=== PATIENT | male | born 1960 | race Caucasian/White ===

== ENCOUNTER 2016-02-24 02:22 | Emergency (ER) | payer BC ==
[2016-02-24] MEDS ORDERED: GI COCKTAIL 50ML BTL(HYOSCYAMINE/MAALOX/LIDOCAINE VISCOUS)(1:3:1) As Ordered ONE (03:21)
[2016-02-24 03:27] LABS: BASO # 0.2 K/mm3 (0.0-0.2); BASO % 2.5 % (0.0-1.0); EOS # 0.2 K/mm3 (0.0-0.50); EOS % 3.3 % (0.0-3.0); LARGE UNSTAINED CELL # 0.1 K/mm3 (0.0-0.4); LARGE UNSTAINED CELL % 1.8 % (0.0-4.0); LYMPH % 25.1 % (24.0-44.0); MEAN CORPUSCULAR HEMOGLOBIN 30.2 pg (27.0-33.0); MEAN CORPUSCULAR HGB CONC 34.5 g/dl (32.0-36.5); MEAN CORPUSCULAR VOLUME 87.5 fl (80.0-96.0); MONO # 0.4 K/mm3 (0.0-0.8); MONO % 5.4 % (0.0-5.0); NEUTROPHILS # 4.7 K/mm3 (1.8-7.7); NEUTROPHILS % 61.9 % (36.0-66.0); PLATELET COUNT, AUTOMATED 270 k/mm3 (150-450); RED CELL DISTRIBUTION WIDTH 13.4 % (11.5-14.5); WHITE BLOOD COUNT 7.6 K/mm3 (4.0-10.0)
[2016-02-24 03:44] LABS: ALBUMIN/GLOBULIN RATIO 1.14 (1.00-1.93); ALKALINE PHOSPHATASE 69 U/L (45-117); ALT/SGPT 25 U/L (12-78); AMYLASE 63 U/L (25-115); ANION GAP 5 MEQ/L (8-16); AST/SGOT 17 U/L (15-37); BILIRUBIN,DIRECT 0.1 MG/DL (0.0-0.2); BILIRUBIN,TOTAL 0.6 MG/DL (0.2-1.0); BLOOD UREA NITROGEN 17 MG/DL (7-18); CALCIUM LEVEL 8.5 MG/DL (8.5-10.1); CARBON DIOXIDE LEVEL 32 MEQ/L (21-32); CHLORIDE LEVEL 104 MEQ/L (98-107); CREATININE FOR GFR 0.92 MG/DL (0.70-1.30); GLOMERULAR FILTRATION RATE > 60.0 (>56); GLUCOSE, FASTING 91 MG/DL (70-105); POTASSIUM SERUM 4.2 MEQ/L (3.5-5.1); SODIUM LEVEL 141 MEQ/L (136-145); TOTAL PROTEIN 7.5 GM/DL (6.4-8.2)
[2016-02-24] MEDS ORDERED: ONDANSETRON 4MG/2ML VIAL (J2405) As Ordered ONE ×2 (03:48→05:27)
[2016-02-24] MEDS ORDERED: MORPHINE 4 MG/ML 1ML SYRINGE As Ordered ONE ×2 (03:48→05:27)
[2016-02-24] MEDS ORDERED: ISOVUE-370 76% 100ML VIAL (Q9967) As Ordered ONE (03:52)
--- NOTE | 2016-02-24 04:40 | REPUSA ---
CLINICAL HISTORY: Abdominal pain. TECHNIQUE: Multiple axial, sagittal and coronal CT images were obtained through the abdomen and pelvi s after administration of intravenous contrast material. COMMENTS: The liver is mildly enlarged with decreased attenuation without mass or defect. There is no intra or extrahepatic biliary ductal dilatation. The spleen is normal. The gallbladder is within normal limits . The pancreas is of normal contour and attenuation characteristics. There is no evidence of adrenal mass. Both kidneys demonstrate prompt and equal nephrograms. The kidneys are normal in size, shape and conf iguration. There is no evidence of renal or ureteral mass. No renal or ureteral calculi are identifie d. There is no hydroureter or hydronephrosis. No evidence for appendicitis. Fluid filled mildly dilated small bowel loops in the left upper quadran t. There is no evidence of abdominal ascites or lymphadenopathy. There is no evidence of intrinsic or extrinsic bladder mass. There is no pelvic ascites or lymphadeno isamar. Images of the lung bases show no evidence of pleural or parenchymal mass. There are no pleural effusi ons. The bony structures are free of lytic or blastic lesions. Multilevel degenerative changes are seen in volving the thoracolumbar spine. Scattered calcifications are seen involving the aorta and major bran ches compatible with atherosclerosis. Mild changes of central mesenteric panniculitis. IMPRESSION: Fluid filled mildly dilated small bowel loops in the left upper quadrant. Focal ileus versus developi ng/low grade bowel obstruction. Mild hepatomegaly with fatty liver infiltration. Thank you for your kind referral of this patient.
--- NOTE | 2016-02-24 06:21 | EDDOCDS ---
Nurse's Notes [facility] Name: Omar Silva Age: 55 yrs Sex: Male : 1960 Arrival Date: 02/24/2016 Time: 02:22 Bed 12 Private MD: Diagnosis: Abdominal and pelvic pain Presentation: 02/23 02:35 Presenting complaint: Patient states: he has had left upper abdominal pain since Tuesday cz pain gradually getting worse and starting to radiate to back decreased appetite. Adult Sepsis Screening: The patient does not have new or worsening altered mentation. Patient's respiratory rate is less than 22. Systolic blood pressure is greater than 100. Patient has a qSOFA score of 0- Negative Sepsis Screen. Suicide/Homicide risk assessment- the patient denies having any suicidal and/or homicidal ideations and does not present with any other emotional, behavioral or mental health complaints. 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 Transition of care: patient was not received from another setting of care. 02:35 Acuity: JESI Level 3 cz 02:35 Method Of Arrival: Walkin/Carried/Asstd cz Triage Assessment: 02:37 General: Appears uncomfortable. Pain: Location: left upper quadrant Pain currently is 6 cz out of 10 on a pain scale. Pt Declines HIV testing. Historical: - Allergies: No known drug Allergies; - Home Meds: 1. none - PMHx: none; - PSHx: bilateral shoulder surgery; - Social history: Smoking status: Patient states was never smoker of tobacco. No barriers to communication noted, The patient speaks fluent Yoruba, Speaks appropriately for age. - Family history: Not pertinent, No immediate family members are acutely ill. - : The pt / caregiver states he / she is not on anticoagulants. Home medication list is obtained from the patient. - Exposure Risk Screening:: None identified. Screenin:14 Screening information is obtained from the patient. Fall risk: No risks identified. mlc Assistance ADL's: requires no assistance with activities of daily living. Abuse/DV Screen: The patient / caregiver reports he/she is: not in a situation that causes fear, pain or injury. Nutritional screening: No deficits noted. Advance Directives: Currently, there is no health care proxy. home support is adequate. Assessment: 03:14 General: Appears in no apparent distress, comfortable, Behavior is cooperative. Pain: mlc Location: left upper quadrant Pain currently is 7 out of 10 on a pain scale. Neurological: Level of Consciousness is awake, alert, obeys commands, Oriented to person, place, time. Cardiovascular: Heart tones S1 S2 present. Respiratory: Airway is patent Respiratory effort is even, unlabored, Respiratory pattern is regular, Breath sounds are clear bilaterally. GI: Abdomen is flat, non- distended Bowel sounds present X 4 quads. Abd is soft X 4 quads Abd is tender to palpation in left upper quadrant Reports gaseousness. Derm: Skin is normal. 03:27 Reassessment: Patient appears in no apparent distress at this time. pt medicated per mlc order. 04:04 Reassessment: pt returned from CT, tolerated well. . mlc 05:36 Reassessment: Patient appears in no apparent distress at this time. Patient states mlc symptoms have not improved. pt medicated per order. resp easy/unlabored. . 06:16 General: Appears in no apparent distress, comfortable, Behavior is cooperative. Pain: mlc Pain currently is 2 out of 10 on a pain scale. Neurological: Level of Consciousness is awake, alert, Oriented to person. Respiratory: Airway is patent Respiratory effort is even, unlabored, Respiratory pattern is regular. Derm: Skin is normal. Vital Signs: 02:37 BP 135 / 86; Pulse 68; Resp 16; Temp 97.1(O); Pulse Ox 96% on R/A; Weight 79.38 kg; cz Height 5 ft. 7 in. (170.18 cm); 05:34 BP 113 / 76 (auto/); mlc 06:16 BP 119 / 80; Pulse 69; Resp 18; Temp 97.3; Pulse Ox 95% ; Pain 2/10; mlc 02:37 Body Mass Index 27.41 (79.38 kg, 170.18 cm) Vitals: 02:37 Log In Time: February 24, 2016 at 02:22. ED Course: 02:24 Patient visited by Miguel Fagan, Alejandro. pm4 02:24 Patient moved to Waiting pm4 02:33 Patient moved to Triage 1 cz 02:36 Triage Initiated cz 02:40 Michelle De La O,SHOSHANA is Primary Nurse. cz 02:40 Patient moved to 12 cz 03:10 Bert Moreno DO is Attending Physician. mm11 03:10 Patient visited by Bert Moreno DO. mm11 03:14 Inserted saline lock: 20 gauge in left antecubital area and blood collected. The mlc patient tolerated the procedure well. 03:15 Patient visited by Michelle De La O RN. mlc 03:17 Patient visited by Bert Moreno DO. mm11 03:20 Cardiac Marker Panel Sent. mlc 03:20 Amylase Sent. mlc 03:20 Basic Metabolic Profile Sent. mlc 03:20 CBC with Diff Sent. mlc 03:20 Lipase Sent. mlc 03:20 Liver Profile Sent. mlc 03:27 Patient visited by Michelle De La O RN. mlc 04:04 Patient visited by Michelle De La O RN. mlc 04:38 Patient visited by Bert Moreno DO. mm11 04:56 CT ABD & PELVIS: IV Contrast Only Returned. EDMS 05:11 [facility] Payment Agreement was scanned into [employer] and attached to record. hs2 05:32 Patient visited by Bert Moreno DO. mm11 05:34 The patient / caregiver is instructed regarding the plan of care and ED course. Pulse mlc ox on. NIBP on. 05:37 Patient visited by Michelle De La O RN. mlc 06:05 Marcel Snell DO is Referral Physician. mm11 06:16 Discontinued IV lock intact, bleeding controlled, pressure dressing applied, No mlc redness/swelling at site. No procedures done that require assistance. Administered Medications: 03:25 Drug: GI Cocktail - (Alum-Mag Hydroxide-Simeth Suspension 225 mg-200 mg-25 mg/5 mL 30 mlc ml, Lidocaine Liquid 2 % 10 ml, Hyoscyamine Liquid 10 ml) Route: PO; 03:53 Follow up: Response: No significant change. mlc 03:26 Drug: NS 0.9% 1000 ml [sodium chloride 0.9 % intravenous solution] Route: IV; Rate: mlc bolus; Site: left antecubital; 03:53 Not Given (Patient Refused): morphine 4 mg IVP every 30 minutes; Document pain mlc score/vitals after each dose (Hold if SBP < 90mmHg) x2 03:53 Not Given (Patient Refused): Ondansetron 4 mg IVP once mlc 05:36 Drug: morphine 4 mg [morphine 4 mg/mL intravenous cartridge (1 mL)] Route: IVP; Site: mlc left antecubital; 06:20 Follow up: Response: Pain is decreased [facility] 05:36 Drug: Ondansetron 4 mg [ondansetron HCl 2 mg/mL intravenous solution (2 mL)] Route: mlc IVP; Site: left antecubital; 06:20 Follow up: Response: No Adverse Reaction [facility] Order Results: Lab Order: Amylase; SPEC'M 02/24/16 03:11 Test: AMYLASE; Value: 63; Range: 25-115; Units: U/L; Status: F Lab Order: Basic Metabolic Profile; SPEC'M 02/24/16 03:11 Test: GLUCOSE, FASTING; Value: 91; Range: 70-105; Units: MG/DL; Status: F Test: BLOOD UREA NITROGEN; Value: 17; Range: 7-18; Units: MG/DL; Status: F Test: CREATININE FOR GFR; Value: 0.92; Range: 0.70-1.30; Units: MG/DL; Status: F Test: GLOMERULAR FILTRATION RATE; Value: > 60.0; Range: >56; Status: F Test: SODIUM LEVEL; Value: 141; Range: 136-145; Units: MEQ/L; Status: F Test: POTASSIUM SERUM; Value: 4.2; Range: 3.5-5.1; Units: MEQ/L; Status: F Test: CHLORIDE LEVEL; Value: 104; Range: 98-107; Units: MEQ/L; Status: F Test: CARBON DIOXIDE LEVEL; Value: 32; Range: 21-32; Units: MEQ/L; Status: F Test: ANION GAP; Value: 5; Range: 8-16; Abnormal: Below low normal; Units: MEQ/L; Status: F Test: CALCIUM LEVEL; Value: 8.5; Range: 8.5-10.1; Units: MG/DL; Status: F Test Note: ; Units are mL/min/1.73 m2 Chronic Kidney Disease Staging per NKF: Stage I & II GFR >=60 Normal to Mildly Decreased Stage III GFR 30-59 Moderately Decreased Stage IV GFR 15-29 Severely Decreased Stage V GFR <15 Very Little GFR Left ESRD GFR <15 on POSTMASTER Lab Order: CBC with Diff; SPEC'M 02/24/16 03:11 Test: WHITE BLOOD COUNT; Value: 7.6; Range: 4.0-10.0; Units: K/mm3; Status: F Test: RED BLOOD COUNT; Value: 5.36; Range: 4.30-6.10; Units: M/mm3; Status: F Test: HEMOGLOBIN; Value: 16.2; Range: 14.0-18.0; Units: g/dl; Status: F Test: HEMATOCRIT; Value: 46.9; Range: 42.0-52.0; Units: %; Status: F Test: MEAN CORPUSCULAR VOLUME; Value: 87.5; Range: 80.0-96.0; Units: fl; Status: F Test: MEAN CORPUSCULAR HEMOGLOBIN; Value: 30.2; Range: 27.0-33.0; Units: pg; Status: F Test: MEAN CORPUSCULAR HGB CONC; Value: 34.5; Range: 32.0-36.5; Units: g/dl; Status: F Test: RED CELL DISTRIBUTION WIDTH; Value: 13.4; Range: 11.5-14.5; Units: %; Status: F Test: PLATELET COUNT, AUTOMATED; Value: 270; Range: 150-450; Units: k/mm3; Status: F Test: NEUTROPHILS %; Value: 61.9; Range: 36.0-66.0; Units: %; Status: F Test: LYMPH %; Value: 25.1; Range: 24.0-44.0; Units: %; Status: F Test: MONO %; Value: 5.4; Range: 0.0-5.0; Abnormal: Above high normal; Units: %; Status: F Test: EOS %; Value: 3.3; Range: 0.0-3.0; Abnormal: Above high normal; Units: %; Status: F Test: BASO %; Value: 2.5; Range: 0.0-1.0; Abnormal: Above high normal; Units: %; Status: F Test: LARGE UNSTAINED CELL %; Value: 1.8; Range: 0.0-4.0; Units: %; Status: F Test: NEUTROPHILS #; Value: 4.7; Range: 1.8-7.7; Units: K/mm3; Status: F Test: LYMPH #; Value: 2.0; Range: 1.5-4.5; Units: K/mm3; Status: F Test: MONO #; Value: 0.4; Range: 0.0-0.8; Units: K/mm3; Status: F Test: EOS #; Value: 0.2; Range: 0.0-0.50; Units: K/mm3; Status: F Test: BASO #; Value: 0.2; Range: 0.0-0.2; Units: K/mm3; Status: F Test: LARGE UNSTAINED CELL #; Value: 0.1; Range: 0.0-0.4; Units: K/mm3; Status: F Lab Order: Lipase; [facility]' 02/24/16 03:11 Test: LIPASE; Value: 204; Range: 73-393; Units: U/L; Status: F Lab Order: Liver Profile; [facility] 02/24/16 03:11 Test: AST/SGOT; Value: 17; Range: 15-37; Units: U/L; Status: F Test: ALT/SGPT; Value: 25; Range: 12-78; Units: U/L; Status: F Test: ALKALINE PHOSPHATASE; Value: 69; Range: 45-117; Units: U/L; Status: F Test: BILIRUBIN,TOTAL; Value: 0.6; Range: 0.2-1.0; Units: MG/DL; Status: F Test: BILIRUBIN,DIRECT; Value: 0.1; Range: 0.0-0.2; Units: MG/DL; Status: F Test: TOTAL PROTEIN; Value: 7.5; Range: 6.4-8.2; Units: GM/DL; Status: F Test: ALBUMIN; Value: 4.0; Range: 3.2-5.2; Units: GM/DL; Status: F Test: ALBUMIN/GLOBULIN RATIO; Value: 1.14; Range: 1.00-1.93; Status: F Lab Order: Cardiac Marker Panel; [facility] 02/24/16 03:11 Test: CPK CREATINE PHOSPHOKINASE; Value: 91; Range: 39-308; Units: U/L; Status: F Test: CK-MB VALUE MASS; Value: 1.0; Range: 0.0-3.6; Units: NG/ML; Status: F Test: MB/CK RELATIVE INDEX; Value: 1.09; Range: < OR =4; Status: F Test: TROPONIN I; Value: < 0.02; Range: < 0.10; Units: NG/ML; Status: F Test Note: ; DIAGNOSIS CRITERIA MMB ng/ml Relative Index (RI) NON-AMI < or = 5 N/A ACE ZONE > 5 < or = 4 AMI > 5 > 4 Radiology Order: CT ABD & PELVIS: IV Contrast Only Test: CT ABD & PELVIS: IV Contrast Only REASON FOR EXAMINATION: LUQ PAIN; ; CLINICAL HISTORY: Abdominal pain.; TECHNIQUE: Multiple axial, sagittal and coronal CT images were obtained through the abdomen and pelvi; s after administration of intravenous contrast material.; COMMENTS:; The liver is mildly enlarged with decreased attenuation without mass or defect. There is no intra or; extrahepatic biliary ductal dilatation. The spleen is normal. The gallbladder is within normal limits; . The pancreas is of normal contour and attenuation characteristics. There is no evidence of adrenal; mass.; Both kidneys demonstrate prompt and equal nephrograms. The kidneys are normal in size, shape and conf; iguration. There is no evidence of renal or ureteral mass. No renal or ureteral calculi are identifie; d. There is no hydroureter or hydronephrosis.; No evidence for appendicitis. Fluid filled mildly dilated small bowel loops in the left upper quadran; t. There is no evidence of abdominal ascites or lymphadenopathy.; There is no evidence of intrinsic or extrinsic bladder mass. There is no pelvic ascites or lymphadeno; isamar.; Images of the lung bases show no evidence of pleural or parenchymal mass. There are no pleural effusi; ons.; The bony structures are free of lytic or blastic lesions. Multilevel degenerative changes are seen in; volving the thoracolumbar spine. Scattered calcifications are seen involving the aorta and major bran; ches compatible with atherosclerosis.; Mild changes of central mesenteric panniculitis.; IMPRESSION:; Fluid filled mildly dilated small bowel loops in the left upper quadrant. Focal ileus versus developi; ng/low grade bowel obstruction.; Mild hepatomegaly with fatty liver infiltration.; Thank you for your kind referral of this patient.; ; Outcome: 05:34 CT Study completed. mlc 06:05 Discharge ordered by Provider. mm11 06:16 Discharge Assessment: Patient awake, alert and oriented x 3. No cognitive and/or mlc functional deficits noted. Patient verbalized understanding of disposition instructions. patient administered narcotics - yes. Pt provided with safe discharge. The following High Risk Discharge criteria are identified: None. Discharged to home ambulatory, with significant other. Condition: good Condition: stable. Discharge instructions given to patient, Instructed on discharge instructions, follow up and referral plans. medication usage, no driving heavy equipment, Demonstrated understanding of instructions, medications, Pt was receptive of discharge instructions/ teaching. Prescriptions given X 2. Property sent home with patient. 06:21 Patient left the ED. [facility] Signatures: Dispatcher [employer] EDMS Alex Bridges RN RN cz Maynard, Matthew, DO DO mm11 Michelle De La O RN RN mlc Stanton, Hillary, Reg Reg hs2 Miguel Fagan, Reg Reg pm4 NIDA
--- NOTE | 2016-02-24 06:21 | EDDOCDS ---
Physician Documentation [facility] Name: Omar Silva Age: 55 yrs Sex: Male : 1960 Arrival Date: 02/24/2016 Time: 02:22 Bed 12 Private MD: Disposition: 02/24/16 06:05 Discharged to Home/Self Care. Impression: Abdominal and pelvic pain. - Condition is Stable. - Discharge Instructions: Abdominal Pain, Adult. - Prescriptions for [place] 5- 325 mg Oral Tablet - take 1 tablet by ORAL route every 6 hours As needed MDD: 4 tabs; 6 tablet. Zofran 4 mg Oral Tablet - take 1 tablet by ORAL route 4 times per day As needed; 10 tablet. - Medication Reconciliation, Local Pharmacy Hours form. - Follow up: Marcel Snell DO; When: 1 week; Reason: Continuance of care. - Problem is an ongoing problem. - Symptoms have improved. - Notes: THE BLOOD WORK DID NOT INDICATE ANY REASON FOR YOUR DISCOMORT. YOUR CT SCAN SHOWED SOME FLUID FILLED LOOPS OF BOWEL IN THE LEFT UPPER QUADRANT WHICH USUALLY INDICATES INFLAMMATION OF YOUR INTESTINES BUT YOU ARE NOT EXPERIENCING ANY NAUSEA. FOLLOW UP WITH YOUR PRIMARY CARE PROVIDER IN [place] AND RETURN TO THE ER IF YOUR SYMPTOMS WORSEN. Historical: - Allergies: No known drug Allergies; - Home Meds: 1. none - PMHx: none; - PSHx: bilateral shoulder surgery; - Social history: Smoking status: Patient states was never smoker of tobacco. No barriers to communication noted, The patient speaks fluent Salvadorean, Speaks appropriately for age. - Family history: Not pertinent, No immediate family members are acutely ill. - : The pt / caregiver states he / she is not on anticoagulants. Home medication list is obtained from the patient. - Exposure Risk Screening:: None identified. Vital Signs: 02/23 02:37 BP 135 / 86; Pulse 68; Resp 16; Temp 97.1(O); Pulse Ox 96% on R/A; Weight 79.38 kg / cz 175 lbs; Height 5 ft. 7 in. (170.18 cm); 05:34 BP 113 / 76 (auto/); mlc 06:16 BP 119 / 80; Pulse 69; Resp 18; Temp 97.3; Pulse Ox 95% ; Pain 2/10; mlc 02:37 Body Mass Index 27.41 (79.38 kg, 170.18 cm) cz MDM: 03:17 NS 0.9% 1000 ml IV at bolus once ordered. mm11 03:17 IV Saline Lock ordered. mm11 03:17 Undress patient appropriately for examination ordered. mm11 03:17 GI Cocktail - (Alum-Mag Hydroxide-Simeth 30 ml, Lidocaine 10 ml, Hyoscyamine 10 ml) PO mm11 once; Pre-mixed 50mL unit dose ordered. 03:19 Amylase Ordered. EDMS 03:19 Basic Metabolic Profile Ordered. EDMS 03:19 CBC with Diff Ordered. EDMS 03:19 Lipase Ordered. EDMS 03:19 Liver Profile Ordered. EDMS 03:19 Cardiac Marker Panel Ordered. EDMS 03:19 NOTHING BY MOUTH+DIET ordered. EDMS 03:45 Basic Metabolic Profile Reviewed. mm11 03:45 CBC with Diff Reviewed. mm11 03:45 Amylase Reviewed. mm11 03:45 Lipase Reviewed. mm11 03:45 Liver Profile Reviewed. mm11 03:46 morphine 4 mg IVP every 30 minutes; Document pain score/vitals after each dose (Hold if mm11 SBP < 90mmHg) x2 ordered. 03:46 Ondansetron 4 mg IVP once ordered. mm11 03:47 CT ABD & PELVIS: IV Contrast Only Ordered. EDMS 04:01 Basic Metabolic Profile Reviewed. mm11 04:01 Amylase Reviewed. mm11 04:01 Lipase Reviewed. mm11 04:01 Liver Profile Reviewed. mm11 04:01 Cardiac Marker Panel Reviewed. mm11 05:05 Financial registration complete. hs2 05:11 [facility] Agreement was scanned into [employer] and attached to record. hs2 05:18 morphine 4 mg IVP every 30 minutes; Document pain score/vitals after each dose (Hold if mm11 SBP < 90mmHg) x2 ordered. 05:18 Ondansetron 4 mg IVP once ordered. mm11 Administered Medications: 03:25 Drug: GI Cocktail - (Alum-Mag Hydroxide-Simeth Suspension 225 mg-200 mg-25 mg/5 mL 30 mlc ml, Lidocaine Liquid 2 % 10 ml, Hyoscyamine Liquid 10 ml) Route: PO; 03:53 Follow up: Response: No significant change. mlc 03:26 Drug: NS 0.9% 1000 ml [sodium chloride 0.9 % intravenous solution] Route: IV; Rate: mlc bolus; Site: left antecubital; 03:53 Not Given (Patient Refused): morphine 4 mg IVP every 30 minutes; Document pain mlc score/vitals after each dose (Hold if SBP < 90mmHg) x2 03:53 Not Given (Patient Refused): Ondansetron 4 mg IVP once mlc 05:36 Drug: morphine 4 mg [morphine 4 mg/mL intravenous cartridge (1 mL)] Route: IVP; Site: mlc left antecubital; 06:20 Follow up: Response: Pain is decreased mlc 05:36 Drug: Ondansetron 4 mg [ondansetron HCl 2 mg/mL intravenous solution (2 mL)] Route: mlc IVP; Site: left antecubital; 06:20 Follow up: Response: No Adverse Reaction [facility] Signatures: Dispatcher [employer] Alex Washburn RN Bert Perez DO DO mm11 Michelle De La O RN RN [facility] Kristi Young, Reg Reg hs2 The chart was reviewed and I authenticate all verbal orders and agree with the evaluation and treatment provided.Attachments: 05:11 [facility] Payment Agreement hs2 MTDD
--- NOTE | 2016-02-26 07:22 | EDDOCDS ---
Nurse's Notes [facility] Name: Omar Silva Age: 55 yrs Sex: Male : 1960 Arrival Date: 02/24/2016 Time: 02:22 Bed 12 Private MD: Diagnosis: Abdominal and pelvic pain Presentation: 02/23 02:35 Presenting complaint: Patient states: he has had left upper abdominal pain since Tuesday cz pain gradually getting worse and starting to radiate to back decreased appetite. Adult Sepsis Screening: The patient does not have new or worsening altered mentation. Patient's respiratory rate is less than 22. Systolic blood pressure is greater than 100. Patient has a qSOFA score of 0- Negative Sepsis Screen. Suicide/Homicide risk assessment- the patient denies having any suicidal and/or homicidal ideations and does not present with any other emotional, behavioral or mental health complaints. 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 Transition of care: patient was not received from another setting of care. 02:35 Acuity: JESI Level 3 cz 02:35 Method Of Arrival: Walkin/Carried/Asstd cz Triage Assessment: 02:37 General: Appears uncomfortable. Pain: Location: left upper quadrant Pain currently is 6 cz out of 10 on a pain scale. Pt Declines HIV testing. Historical: - Allergies: No known drug Allergies; - Home Meds: 1. none - PMHx: none; - PSHx: bilateral shoulder surgery; - Social history: Smoking status: Patient states was never smoker of tobacco. No barriers to communication noted, The patient speaks fluent [place], Speaks appropriately for age. - Family history: Not pertinent, No immediate family members are acutely ill. - : The pt / caregiver states he / she is not on anticoagulants. Home medication list is obtained from the patient. - Exposure Risk Screening:: None identified. Screenin:14 Screening information is obtained from the patient. Fall risk: No risks identified. mlc Assistance ADL's: requires no assistance with activities of daily living. Abuse/DV Screen: The patient / caregiver reports he/she is: not in a situation that causes fear, pain or injury. Nutritional screening: No deficits noted. Advance Directives: Currently, there is no health care proxy. home support is adequate. Assessment: 03:14 General: Appears in no apparent distress, comfortable, Behavior is cooperative. Pain: mlc Location: left upper quadrant Pain currently is 7 out of 10 on a pain scale. Neurological: Level of Consciousness is awake, alert, obeys commands, Oriented to person, place, time. Cardiovascular: Heart tones S1 S2 present. Respiratory: Airway is patent Respiratory effort is even, unlabored, Respiratory pattern is regular, Breath sounds are clear bilaterally. GI: Abdomen is flat, non- distended Bowel sounds present X 4 quads. Abd is soft X 4 quads Abd is tender to palpation in left upper quadrant Reports gaseousness. Derm: Skin is normal. 03:27 Reassessment: Patient appears in no apparent distress at this time. pt medicated per mlc order. 04:04 Reassessment: pt returned from CT, tolerated well. . mlc 05:36 Reassessment: Patient appears in no apparent distress at this time. Patient states mlc symptoms have not improved. pt medicated per order. resp easy/unlabored. . 06:16 General: Appears in no apparent distress, comfortable, Behavior is cooperative. Pain: mlc Pain currently is 2 out of 10 on a pain scale. Neurological: Level of Consciousness is awake, alert, Oriented to person. Respiratory: Airway is patent Respiratory effort is even, unlabored, Respiratory pattern is regular. Derm: Skin is normal. Vital Signs: 02:37 BP 135 / 86; Pulse 68; Resp 16; Temp 97.1(O); Pulse Ox 96% on R/A; Weight 79.38 kg; cz Height 5 ft. 7 in. (170.18 cm); 05:34 BP 113 / 76 (auto/); mlc 06:16 BP 119 / 80; Pulse 69; Resp 18; Temp 97.3; Pulse Ox 95% ; Pain 2/10; mlc 02:37 Body Mass Index 27.41 (79.38 kg, 170.18 cm) Vitals: 02:37 Log In Time: February 24, 2016 at 02:22. ED Course: 02:24 Patient visited by Miguel Fagan, Alejandro. pm4 02:24 Patient moved to Waiting pm4 02:33 Patient moved to Triage 1 cz 02:36 Triage Initiated cz 02:40 Michelle De La O,SHOSHANA is Primary Nurse. cz 02:40 Patient moved to 12 cz 03:10 Bert Moreno DO is Attending Physician. mm11 03:10 Patient visited by Bert Moreno DO. mm11 03:14 Inserted saline lock: 20 gauge in left antecubital area and blood collected. The mlc patient tolerated the procedure well. 03:15 Patient visited by Michelle De La O RN. mlc 03:17 Patient visited by Bert Moreno DO. mm11 03:20 Cardiac Marker Panel Sent. mlc 03:20 Amylase Sent. mlc 03:20 Basic Metabolic Profile Sent. mlc 03:20 CBC with Diff Sent. mlc 03:20 Lipase Sent. mlc 03:20 Liver Profile Sent. mlc 03:27 Patient visited by Michelle De La O RN. mlc 04:04 Patient visited by Michelle De La O RN. mlc 04:38 Patient visited by Bert Moreno DO. mm11 04:56 CT ABD & PELVIS: IV Contrast Only Returned. EDMS 05:11 [facility] Payment Agreement was scanned into [employer] and attached to record. hs2 05:32 Patient visited by Bert Moreno DO. mm11 05:34 The patient / caregiver is instructed regarding the plan of care and ED course. Pulse mlc ox on. NIBP on. 05:37 Patient visited by Michelle De La O RN. mlc 06:05 Marcel Snell DO is Referral Physician. mm11 06:16 Discontinued IV lock intact, bleeding controlled, pressure dressing applied, No mlc redness/swelling at site. No procedures done that require assistance. 12:10 T-Sheet-- Draft Copy was scanned into [employer] and attached to record. gb 12:10 Radiology Report was scanned into [employer] and attached to record. gb Administered Medications: 03:25 Drug: GI Cocktail - (Alum-Mag Hydroxide-Simeth Suspension 225 mg-200 mg-25 mg/5 mL 30 mlc ml, Lidocaine Liquid 2 % 10 ml, Hyoscyamine Liquid 10 ml) Route: PO; 03:53 Follow up: Response: No significant change. mlc 03:26 Drug: NS 0.9% 1000 ml [sodium chloride 0.9 % intravenous solution] Route: IV; Rate: mlc bolus; Site: left antecubital; 03:53 Not Given (Patient Refused): morphine 4 mg IVP every 30 minutes; Document pain mlc score/vitals after each dose (Hold if SBP < 90mmHg) x2 03:53 Not Given (Patient Refused): Ondansetron 4 mg IVP once [facility] 05:36 Drug: morphine 4 mg [morphine 4 mg/mL intravenous cartridge (1 mL)] Route: IVP; Site: [facility] left antecubital; 06:20 Follow up: Response: Pain is decreased [facility] 05:36 Drug: Ondansetron 4 mg [ondansetron HCl 2 mg/mL intravenous solution (2 mL)] Route: mlc IVP; Site: left antecubital; 06:20 Follow up: Response: No Adverse Reaction [facility] Order Results: Lab Order: Amylase; SPEC'M 02/24/16 03:11 Test: AMYLASE; Value: 63; Range: 25-115; Units: U/L; Status: F Lab Order: Basic Metabolic Profile; SPEC' 02/24/16 03:11 Test: GLUCOSE, FASTING; Value: 91; Range: 70-105; Units: MG/DL; Status: F Test: BLOOD UREA NITROGEN; Value: 17; Range: 7-18; Units: MG/DL; Status: F Test: CREATININE FOR GFR; Value: 0.92; Range: 0.70-1.30; Units: MG/DL; Status: F Test: GLOMERULAR FILTRATION RATE; Value: > 60.0; Range: >56; Status: F Test: SODIUM LEVEL; Value: 141; Range: 136-145; Units: MEQ/L; Status: F Test: POTASSIUM SERUM; Value: 4.2; Range: 3.5-5.1; Units: MEQ/L; Status: F Test: CHLORIDE LEVEL; Value: 104; Range: 98-107; Units: MEQ/L; Status: F Test: CARBON DIOXIDE LEVEL; Value: 32; Range: 21-32; Units: MEQ/L; Status: F Test: ANION GAP; Value: 5; Range: 8-16; Abnormal: Below low normal; Units: MEQ/L; Status: F Test: CALCIUM LEVEL; Value: 8.5; Range: 8.5-10.1; Units: MG/DL; Status: F Test Note: ; Units are mL/min/1.73 m2 Chronic Kidney Disease Staging per NKF: Stage I & II GFR >=60 Normal to Mildly Decreased Stage III GFR 30-59 Moderately Decreased Stage IV GFR 15-29 Severely Decreased Stage V GFR <15 Very Little GFR Left ESRD GFR <15 on BOAT HAND Lab Order: CBC with Diff; SPEC'M 02/24/16 03:11 Test: WHITE BLOOD COUNT; Value: 7.6; Range: 4.0-10.0; Units: K/mm3; Status: F Test: RED BLOOD COUNT; Value: 5.36; Range: 4.30-6.10; Units: M/mm3; Status: F Test: HEMOGLOBIN; Value: 16.2; Range: 14.0-18.0; Units: g/dl; Status: F Test: HEMATOCRIT; Value: 46.9; Range: 42.0-52.0; Units: %; Status: F Test: MEAN CORPUSCULAR VOLUME; Value: 87.5; Range: 80.0-96.0; Units: fl; Status: F Test: MEAN CORPUSCULAR HEMOGLOBIN; Value: 30.2; Range: 27.0-33.0; Units: pg; Status: F Test: MEAN CORPUSCULAR HGB CONC; Value: 34.5; Range: 32.0-36.5; Units: g/dl; Status: F Test: RED CELL DISTRIBUTION WIDTH; Value: 13.4; Range: 11.5-14.5; Units: %; Status: F Test: PLATELET COUNT, AUTOMATED; Value: 270; Range: 150-450; Units: k/mm3; Status: F Test: NEUTROPHILS %; Value: 61.9; Range: 36.0-66.0; Units: %; Status: F Test: LYMPH %; Value: 25.1; Range: 24.0-44.0; Units: %; Status: F Test: MONO %; Value: 5.4; Range: 0.0-5.0; Abnormal: Above high normal; Units: %; Status: F Test: EOS %; Value: 3.3; Range: 0.0-3.0; Abnormal: Above high normal; Units: %; Status: F Test: BASO %; Value: 2.5; Range: 0.0-1.0; Abnormal: Above high normal; Units: %; Status: F Test: LARGE UNSTAINED CELL %; Value: 1.8; Range: 0.0-4.0; Units: %; Status: F Test: NEUTROPHILS #; Value: 4.7; Range: 1.8-7.7; Units: K/mm3; Status: F Test: LYMPH #; Value: 2.0; Range: 1.5-4.5; Units: K/mm3; Status: F Test: MONO #; Value: 0.4; Range: 0.0-0.8; Units: K/mm3; Status: F Test: EOS #; Value: 0.2; Range: 0.0-0.50; Units: K/mm3; Status: F Test: BASO #; Value: 0.2; Range: 0.0-0.2; Units: K/mm3; Status: F Test: LARGE UNSTAINED CELL #; Value: 0.1; Range: 0.0-0.4; Units: K/mm3; Status: F Lab Order: Lipase; [facility] 02/24/16 03:11 Test: LIPASE; Value: 204; Range: 73-393; Units: U/L; Status: F Lab Order: Liver Profile; [facility] 02/24/16 03:11 Test: AST/SGOT; Value: 17; Range: 15-37; Units: U/L; Status: F Test: ALT/SGPT; Value: 25; Range: 12-78; Units: U/L; Status: F Test: ALKALINE PHOSPHATASE; Value: 69; Range: 45-117; Units: U/L; Status: F Test: BILIRUBIN,TOTAL; Value: 0.6; Range: 0.2-1.0; Units: MG/DL; Status: F Test: BILIRUBIN,DIRECT; Value: 0.1; Range: 0.0-0.2; Units: MG/DL; Status: F Test: TOTAL PROTEIN; Value: 7.5; Range: 6.4-8.2; Units: GM/DL; Status: F Test: ALBUMIN; Value: 4.0; Range: 3.2-5.2; Units: GM/DL; Status: F Test: ALBUMIN/GLOBULIN RATIO; Value: 1.14; Range: 1.00-1.93; Status: F Lab Order: Cardiac Marker Panel; [facility] 02/24/16 03:11 Test: CPK CREATINE PHOSPHOKINASE; Value: 91; Range: 39-308; Units: U/L; Status: F Test: CK-MB VALUE MASS; Value: 1.0; Range: 0.0-3.6; Units: NG/ML; Status: F Test: MB/CK RELATIVE INDEX; Value: 1.09; Range: < OR =4; Status: F Test: TROPONIN I; Value: < 0.02; Range: < 0.10; Units: NG/ML; Status: F Test Note: ; DIAGNOSIS CRITERIA MMB ng/ml Relative Index (RI) NON-AMI < or = 5 N/A ACE ZONE > 5 < or = 4 AMI > 5 > 4 Radiology Order: CT ABD & PELVIS: IV Contrast Only Test: CT ABD & PELVIS: IV Contrast Only REASON FOR EXAMINATION: LUQ PAIN; ; CLINICAL HISTORY: Abdominal pain.; TECHNIQUE: Multiple axial, sagittal and coronal CT images were obtained through the abdomen and pelvi; s after administration of intravenous contrast material.; COMMENTS:; The liver is mildly enlarged with decreased attenuation without mass or defect. There is no intra or; extrahepatic biliary ductal dilatation. The spleen is normal. The gallbladder is within normal limits; . The pancreas is of normal contour and attenuation characteristics. There is no evidence of adrenal; mass.; Both kidneys demonstrate prompt and equal nephrograms. The kidneys are normal in size, shape and conf; iguration. There is no evidence of renal or ureteral mass. No renal or ureteral calculi are identifie; d. There is no hydroureter or hydronephrosis.; No evidence for appendicitis. Fluid filled mildly dilated small bowel loops in the left upper quadran; t. There is no evidence of abdominal ascites or lymphadenopathy.; There is no evidence of intrinsic or extrinsic bladder mass. There is no pelvic ascites or lymphadeno; isamar.; Images of the lung bases show no evidence of pleural or parenchymal mass. There are no pleural effusi; ons.; The bony structures are free of lytic or blastic lesions. Multilevel degenerative changes are seen in; volving the thoracolumbar spine. Scattered calcifications are seen involving the aorta and major bran; ches compatible with atherosclerosis.; Mild changes of central mesenteric panniculitis.; IMPRESSION:; Fluid filled mildly dilated small bowel loops in the left upper quadrant. Focal ileus versus developi; ng/low grade bowel obstruction.; Mild hepatomegaly with fatty liver infiltration.; Thank you for your kind referral of this patient.; ; Outcome: 05:34 CT Study completed. mlc 06:05 Discharge ordered by Provider. mm11 06:16 Discharge Assessment: Patient awake, alert and oriented x 3. No cognitive and/or mlc functional deficits noted. Patient verbalized understanding of disposition instructions. patient administered narcotics - yes. Pt provided with safe discharge. The following High Risk Discharge criteria are identified: None. Discharged to home ambulatory, with significant other. Condition: good Condition: stable. Discharge instructions given to patient, Instructed on discharge instructions, follow up and referral plans. medication usage, no driving heavy equipment, Demonstrated understanding of instructions, medications, Pt was receptive of discharge instructions/ teaching. Prescriptions given X 2. Property sent home with patient. 06:21 Patient left the ED. [facility] Signatures: Dispatcher [employer] EDMS Alex Bridges RN RN cz Barnhardt, Gloria, Reg Reg gb Bert Moreno, DO mm11 Michelle De La O RN RN [facility] Kristi Young, Reg Reg hs2 Miguel Fagan, Reg Reg pm4 Chart Complete NIDA
--- NOTE | 2016-02-26 07:22 | EDDOCDS ---
Physician Documentation [facility] Name: Omar Silva Age: 55 yrs Sex: Male : 1960 Arrival Date: 02/24/2016 Time: 02:22 Bed 12 Private MD: Disposition: 02/24/16 06:05 Discharged to Home/Self Care. Impression: Abdominal and pelvic pain. - Condition is Stable. - Discharge Instructions: Abdominal Pain, Adult. - Prescriptions for [place] 5- 325 mg Oral Tablet - take 1 tablet by ORAL route every 6 hours As needed MDD: 4 tabs; 6 tablet. Zofran 4 mg Oral Tablet - take 1 tablet by ORAL route 4 times per day As needed; 10 tablet. - Medication Reconciliation, Local Pharmacy Hours form. - Follow up: Marcel Martínez DO; When: 1 week; Reason: Continuance of care. - Problem is an ongoing problem. - Symptoms have improved. - Notes: THE BLOOD WORK DID NOT INDICATE ANY REASON FOR YOUR DISCOMORT. YOUR CT SCAN SHOWED SOME FLUID FILLED LOOPS OF BOWEL IN THE LEFT UPPER QUADRANT WHICH USUALLY INDICATES INFLAMMATION OF YOUR INTESTINES BUT YOU ARE NOT EXPERIENCING ANY NAUSEA. FOLLOW UP WITH YOUR PRIMARY CARE PROVIDER IN [place] AND RETURN TO THE ER IF YOUR SYMPTOMS WORSEN. Historical: - Allergies: No known drug Allergies; - Home Meds: 1. none - PMHx: none; - PSHx: bilateral shoulder surgery; - Social history: Smoking status: Patient states was never smoker of tobacco. No barriers to communication noted, The patient speaks fluent [place], Speaks appropriately for age. - Family history: Not pertinent, No immediate family members are acutely ill. - : The pt / caregiver states he / she is not on anticoagulants. Home medication list is obtained from the patient. - Exposure Risk Screening:: None identified. Vital Signs: 02/23 02:37 BP 135 / 86; Pulse 68; Resp 16; Temp 97.1(O); Pulse Ox 96% on R/A; Weight 79.38 kg / cz 175 lbs; Height 5 ft. 7 in. (170.18 cm); 05:34 BP 113 / 76 (auto/); mlc 06:16 BP 119 / 80; Pulse 69; Resp 18; Temp 97.3; Pulse Ox 95% ; Pain 2/10; mlc 02:37 Body Mass Index 27.41 (79.38 kg, 170.18 cm) cz MDM: 03:17 NS 0.9% 1000 ml IV at bolus once ordered. mm11 03:17 IV Saline Lock ordered. mm11 03:17 Undress patient appropriately for examination ordered. mm11 03:17 GI Cocktail - (Alum-Mag Hydroxide-Simeth 30 ml, Lidocaine 10 ml, Hyoscyamine 10 ml) PO mm11 once; Pre-mixed 50mL unit dose ordered. 03:19 Amylase Ordered. EDMS 03:19 Basic Metabolic Profile Ordered. EDMS 03:19 CBC with Diff Ordered. EDMS 03:19 Lipase Ordered. EDMS 03:19 Liver Profile Ordered. EDMS 03:19 Cardiac Marker Panel Ordered. EDMS 03:19 NOTHING BY MOUTH+DIET ordered. EDMS 03:45 Basic Metabolic Profile Reviewed. mm11 03:45 CBC with Diff Reviewed. mm11 03:45 Amylase Reviewed. mm11 03:45 Lipase Reviewed. mm11 03:45 Liver Profile Reviewed. mm11 03:46 morphine 4 mg IVP every 30 minutes; Document pain score/vitals after each dose (Hold if mm11 SBP < 90mmHg) x2 ordered. 03:46 Ondansetron 4 mg IVP once ordered. mm11 03:47 CT ABD & PELVIS: IV Contrast Only Ordered. EDMS 04:01 Basic Metabolic Profile Reviewed. mm11 04:01 Amylase Reviewed. mm11 04:01 Lipase Reviewed. mm11 04:01 Liver Profile Reviewed. mm11 04:01 Cardiac Marker Panel Reviewed. mm11 05:05 Financial registration complete. hs2 05:11 [facility] Payment Agreement was scanned into [employer] and attached to record. hs2 05:18 morphine 4 mg IVP every 30 minutes; Document pain score/vitals after each dose (Hold if mm11 SBP < 90mmHg) x2 ordered. 05:18 Ondansetron 4 mg IVP once ordered. mm11 12:10 T-Sheet-- Draft Copy was scanned into [employer] and attached to record. gb 12:10 Radiology Report was scanned into [employer] and attached to record. gb 20:03 ED course: dr martínez faxed formal report of ct abd/p for fu mlg. ml Administered Medications: 03:25 Drug: GI Cocktail - (Alum-Mag Hydroxide-Simeth Suspension 225 mg-200 mg-25 mg/5 mL 30 mlc ml, Lidocaine Liquid 2 % 10 ml, Hyoscyamine Liquid 10 ml) Route: PO; 03:53 Follow up: Response: No significant change. mlc 03:26 Drug: NS 0.9% 1000 ml [sodium chloride 0.9 % intravenous solution] Route: IV; Rate: mlc bolus; Site: left antecubital; 03:53 Not Given (Patient Refused): morphine 4 mg IVP every 30 minutes; Document pain mlc score/vitals after each dose (Hold if SBP < 90mmHg) x2 03:53 Not Given (Patient Refused): Ondansetron 4 mg IVP once mlc 05:36 Drug: morphine 4 mg [morphine 4 mg/mL intravenous cartridge (1 mL)] Route: IVP; Site: mlc left antecubital; 06:20 Follow up: Response: Pain is decreased mlc 05:36 Drug: Ondansetron 4 mg [ondansetron HCl 2 mg/mL intravenous solution (2 mL)] Route: mlc IVP; Site: left antecubital; 06:20 Follow up: Response: No Adverse Reaction mlc Signatures: Dispatcher [employer] EDRenetta Alston MD MD ml Alex Bridges RN RN cz [address], Reg Reg gb Bert Moreno DO DO mm11 Michelle De La O RN RN [facility] Kristi Young, Reg Reg hs2 The chart was reviewed and I authenticate all verbal orders and agree with the evaluation and treatment provided.Attachments: 05:11 [facility] Payment Agreement hs2 12:10 T-Sheet-- Draft Copy gb Chart Complete MTDD
--- NOTE | 2016-02-26 07:22 | EDDOCDS ---
Physician Documentation [facility] Name: Omar Silva Age: 55 yrs Sex: Male : 1960 Arrival Date: 02/24/2016 Time: 02:22 Bed 12 Private MD: Disposition: 02/24/16 06:05 Discharged to Home/Self Care. Impression: Abdominal and pelvic pain. - Condition is Stable. - Discharge Instructions: Abdominal Pain, Adult. - Prescriptions for [place] 5- 325 mg Oral Tablet - take 1 tablet by ORAL route every 6 hours As needed MDD: 4 tabs; 6 tablet. Zofran 4 mg Oral Tablet - take 1 tablet by ORAL route 4 times per day As needed; 10 tablet. - Medication Reconciliation, Local Pharmacy Hours form. - Follow up: Marcel Martínez DO; When: 1 week; Reason: Continuance of care. - Problem is an ongoing problem. - Symptoms have improved. - Notes: THE BLOOD WORK DID NOT INDICATE ANY REASON FOR YOUR DISCOMORT. YOUR CT SCAN SHOWED SOME FLUID FILLED LOOPS OF BOWEL IN THE LEFT UPPER QUADRANT WHICH USUALLY INDICATES INFLAMMATION OF YOUR INTESTINES BUT YOU ARE NOT EXPERIENCING ANY NAUSEA. FOLLOW UP WITH YOUR PRIMARY CARE PROVIDER IN [place] AND RETURN TO THE ER IF YOUR SYMPTOMS WORSEN. Historical: - Allergies: No known drug Allergies; - Home Meds: 1. none - PMHx: none; - PSHx: bilateral shoulder surgery; - Social history: Smoking status: Patient states was never smoker of tobacco. No barriers to communication noted, The patient speaks fluent [place], Speaks appropriately for age. - Family history: Not pertinent, No immediate family members are acutely ill. - : The pt / caregiver states he / she is not on anticoagulants. Home medication list is obtained from the patient. - Exposure Risk Screening:: None identified. Vital Signs: 02/23 02:37 BP 135 / 86; Pulse 68; Resp 16; Temp 97.1(O); Pulse Ox 96% on R/A; Weight 79.38 kg / cz 175 lbs; Height 5 ft. 7 in. (170.18 cm); 05:34 BP 113 / 76 (auto/); mlc 06:16 BP 119 / 80; Pulse 69; Resp 18; Temp 97.3; Pulse Ox 95% ; Pain 2/10; mlc 02:37 Body Mass Index 27.41 (79.38 kg, 170.18 cm) cz MDM: 03:17 NS 0.9% 1000 ml IV at bolus once ordered. mm11 03:17 IV Saline Lock ordered. mm11 03:17 Undress patient appropriately for examination ordered. mm11 03:17 GI Cocktail - (Alum-Mag Hydroxide-Simeth 30 ml, Lidocaine 10 ml, Hyoscyamine 10 ml) PO mm11 once; Pre-mixed 50mL unit dose ordered. 03:19 Amylase Ordered. EDMS 03:19 Basic Metabolic Profile Ordered. EDMS 03:19 CBC with Diff Ordered. EDMS 03:19 Lipase Ordered. EDMS 03:19 Liver Profile Ordered. EDMS 03:19 Cardiac Marker Panel Ordered. EDMS 03:19 NOTHING BY MOUTH+DIET ordered. EDMS 03:45 Basic Metabolic Profile Reviewed. mm11 03:45 CBC with Diff Reviewed. mm11 03:45 Amylase Reviewed. mm11 03:45 Lipase Reviewed. mm11 03:45 Liver Profile Reviewed. mm11 03:46 morphine 4 mg IVP every 30 minutes; Document pain score/vitals after each dose (Hold if mm11 SBP < 90mmHg) x2 ordered. 03:46 Ondansetron 4 mg IVP once ordered. mm11 03:47 CT ABD & PELVIS: IV Contrast Only Ordered. EDMS 04:01 Basic Metabolic Profile Reviewed. mm11 04:01 Amylase Reviewed. mm11 04:01 Lipase Reviewed. mm11 04:01 Liver Profile Reviewed. mm11 04:01 Cardiac Marker Panel Reviewed. mm11 05:05 Financial registration complete. hs2 05:11 [facility] Payment Agreement was scanned into [email or web address] and attached to record. hs2 05:18 morphine 4 mg IVP every 30 minutes; Document pain score/vitals after each dose (Hold if mm11 SBP < 90mmHg) x2 ordered. 05:18 Ondansetron 4 mg IVP once ordered. mm11 12:10 T-Sheet-- Draft Copy was scanned into [email or web address] and attached to record. gb 12:10 Radiology Report was scanned into [email or web address] and attached to record. gb 20:03 ED course: dr martínez faxed formal report of ct abd/p for fu mlg. ml Administered Medications: 03:25 Drug: GI Cocktail - (Alum-Mag Hydroxide-Simeth Suspension 225 mg-200 mg-25 mg/5 mL 30 mlc ml, Lidocaine Liquid 2 % 10 ml, Hyoscyamine Liquid 10 ml) Route: PO; 03:53 Follow up: Response: No significant change. mlc 03:26 Drug: NS 0.9% 1000 ml [sodium chloride 0.9 % intravenous solution] Route: IV; Rate: mlc bolus; Site: left antecubital; 03:53 Not Given (Patient Refused): morphine 4 mg IVP every 30 minutes; Document pain mlc score/vitals after each dose (Hold if SBP < 90mmHg) x2 03:53 Not Given (Patient Refused): Ondansetron 4 mg IVP once mlc 05:36 Drug: morphine 4 mg [morphine 4 mg/mL intravenous cartridge (1 mL)] Route: IVP; Site: mlc left antecubital; 06:20 Follow up: Response: Pain is decreased mlc 05:36 Drug: Ondansetron 4 mg [ondansetron HCl 2 mg/mL intravenous solution (2 mL)] Route: mlc IVP; Site: left antecubital; 06:20 Follow up: Response: No Adverse Reaction mlc Signatures: Dispatcher [employer] EDRenetta Alston MD MD ml Alex Bridges RN RN cz [address], Reg Reg gb Bert Moreno DO DO mm11 Michelle De La O RN RN [facility] Kristi Young, Reg Reg hs2 The chart was reviewed and I authenticate all verbal orders and agree with the evaluation and treatment provided.Attachments: 05:11 [facility] Payment Agreement hs2 12:10 T-Sheet-- Draft Copy gb Chart Complete MTDD
== END 2016-02-24 06:21 | disposition home or self-care (01) ==
LOC: M ED 02:22
DX: R10.12 Left upper quadrant pain (principal)
CPT/HCPCS: 36415; 74177; 80048; 80076; 82150; 82550; 82553; 83690; 85025; 96374; 96375; 99284; J2405; Q9967

== ENCOUNTER → 2016-02-25 | Outpatient (REF) | payer BC ==
[2016-02-25 13:52] LABS: CONTROL LINE HPYORI INT CTR LINE PRESENT
== END ==
LOC: M SFHCCLAY 08:51
PROVIDERS: ATTEND Nurse Practitioner
DX: R10.9 Unspecified abdominal pain (principal); R07.89 Other chest pain